=== PATIENT | male | born 1980 | race African-American/Black ===

== ENCOUNTER 2016-11-10 21:18 | Emergency (ER) | payer BC ==
[2016-11-10] MEDS ORDERED: IBUPROFEN 600 MG TABLET PO ONE (22:14)
[2016-11-10] MEDS ORDERED: AMOXICILLIN TRYHYD 250 MG/5 ML SUSP 80 ML (ER DISP) PO ONE (22:14)
[2016-11-10] MEDS ORDERED: CIPROFLOXACIN HCL/DEXAMETH OTIC DROP 7.5 ML AU ONE (22:14)
--- NOTE | 2016-11-10 22:16 | ER Document Report ---
ED General - General Chief Complaint: Ear Pain Stated Complaint: EAR PAIN Time Seen by Provider: 11/10/16 21:55 Notes: Patient is a 36 year old with 1 week of bilateral ear pain. Does describe as a dull, constant, throbbing pain that is mild in nature. Patient's pain is not improved or worsened by anything. He has tried instilling oil into the ears without improvement. States he has a remote history of similar symptoms approximately 2 years ago. He has not seen his primary doctor regarding today' s concerns. Denies any fever or constitutional symptoms. No headache or neck pain. TRAVEL OUTSIDE OF THE [place] IN LAST 30 DAYS: No - Related Data Allergies/Adverse Reactions: No Known Allergies Allergy (Verified 12/01/13 10:07) Past Medical History - General Information source: Patient - Social History Smoking Status: Never Smoker Frequency of alcohol use: None Drug Abuse: None Lives with: Spouse/Significant other Family History: Reviewed & Not Pertinent Renal/ Medical History: Denies: Hx Peritoneal Dialysis Past Surgical History: Reports: Hx Orthopedic Surgery - right tib/fib fx - Immunizations Hx Diphtheria, Pertussis, Tetanus Vaccination: Yes - <5 years Review of Systems - Review of Systems Notes: Constitutional: Negative for fever. HENT: Positive for bilateral ear pain Eyes: Negative for visual changes. Cardiovascular: Negative for chest pain. Respiratory: Negative for shortness of breath. Gastrointestinal: Negative for abdominal pain, vomiting or diarrhea. Genitourinary: Negative for dysuria. Musculoskeletal: Negative for back pain. Skin: Negative for rash. Neurological: Negative for headaches, weakness or numbness. 10 point ROS negative except as marked above and in HPI. Physical Exam - Vital signs Vitals: Temp Pulse Resp BP Pulse Ox 97.9 F 67 20 146/89 H 97 11/10/16 21:54 11/10/16 21:54 11/10/16 21:54 11/10/16 21:54 11/10/16 21:54 Interpretation: Hypertensive Notes: PHYSICAL EXAMINATION: GENERAL: Well-appearing, well-nourished and in no acute distress. HEAD: Atraumatic, normocephalic. EYES: Pupils equal round and reactive to light, extraocular movements intact, sclera anicteric, conjunctiva are normal. ENT: nares patent, oropharynx clear without exudates. Moist mucous membranes. External ear canals are mildly erythematous and swollen bilaterally. There is some purulent expression associated with this erythema and there is a purulent effusion behind both TMs. No pain over the mastoids bilaterally NECK: Normal range of motion, supple without lymphadenopathy LUNGS: Breath sounds clear to auscultation bilaterally and equal. No wheezes rales or rhonchi. HEART: Regular rate and rhythm without murmurs ABDOMEN: Soft, nontender, normoactive bowel sounds. No guarding, no rebound. No masses appreciated. EXTREMITIES: Normal range of motion, no pitting or edema. No cyanosis. NEUROLOGICAL: No focal neurological deficits. Moves all extremities spontaneously and on command. PSYCH: Normal mood, normal affect. SKIN: Warm, Dry, normal turgor, no rashes or lesions noted. Course - Re-evaluation Re-evalutation: 11/10/16 22:13 Patient presents with bilateral otitis externa with associated otitis media without perforation. He is otherwise well in appearance, no pain over the mastoids bilaterally. Vitals otherwise within normal limits. Treat with Ciprodex drops and amoxicillin. At this time will discharge with return precautions and follow-up recommendations. Verbal discharge instructions given a the bedside and opportunity for questions given. Medication warnings reviewed. Patient is in agreement with this plan and has verbalized understanding of return precautions and the need for primary care follow-up in the next 24-72 hours. - Vital Signs Vital signs: Temp Pulse Resp BP Pulse Ox 97.8 F 57 L 16 162/97 H 97 11/10/16 22:58 11/10/16 22:58 11/10/16 22:58 11/10/16 22:58 11/10/16 22:58 Discharge - Discharge Clinical Impression: Bilateral otitis externa Qualifiers: Otitis externa type: other infective Chronicity: acute Qualified Code(s): H60.393 - Other infective otitis externa, bilateral Bilateral otitis media Qualifiers: Otitis media type: suppurative Chronicity: acute Recurrence: not specified as recurrent Spontaneous tympanic membrane rupture: without spontaneous rupture Qualified Code(s): H66.003 - Acute suppurative otitis media without spontaneous rupture of ear drum, bilateral Condition: Good Disposition: HOME, SELF-CARE Instructions: Otitis Externa ([facility]) Additional Instructions: Please take the antibiotics and eardrops as prescribed. Start taking loratadine 10 mg daily to see if this prevents similar recurrent infections. Return if you develop a fever greater than 101F, severe headache, pass out, or have any other symptoms that are concerning to you. Prescriptions: Amoxicillin Trihydrate [Amoxil 500 mg Capsule] 500 mg PO TID #30 cap
[2016-11-10 23:00] VITALS: BP 162/97
== END 2016-11-10 22:58 | disposition home or self-care (01) ==
LOC: ER 21:18
DX: H66.003 Acute suppurative otitis media without spontaneous rupture of ear drum, bilateral (principal); H60.393 Other infective otitis externa, bilateral; H92.03 Otalgia, bilateral
CPT/HCPCS: 99282; J3490